=== PATIENT | female | born 1995 | race Caucasian/White ===

== ENCOUNTER 2019-06-14 18:29 | Emergency (ER) | payer MEDICAID ==
[2019-06-14] MEDS ORDERED: Sodium Chloride 0.9% 10 ML Syringe FLUSH PRN (19:03)
[2019-06-14] MEDS ORDERED: Ondansetron 4 MG/2 ML SDV IVPUSH ONE (19:03)
[2019-06-14] MEDS ORDERED: Sodium Chloride 0.9% 1,000 ML IV SCH (19:15)
[2019-06-14] MEDS ORDERED: cefTRIAXone 2 GM in Sodium Chloride 0.9% 100 ML IV ONE (20:37)
--- NOTE | 2019-06-14 20:56 | EDM.PDOC ---
ED HPI GENERAL MEDICAL PROBLEM - General Chief Complaint: Genitourinary Problem Stated Complaint: POSS KIDNEY INFECTION Time Seen by Provider: 06/14/19 18:53 Source of Information: Reports: Patient, RN Notes Reviewed - History of Present Illness INITIAL COMMENTS - FREE TEXT/NARRATIVE: 24 year old female comes in with L low back, nausea, vomiting yesterday, chills , concern fo kidney infection. She thought she just had the stomach flu but than started having L low back pain today. Hx of prior kidney infection and this feels similar. She is not diabetic. Left Flank Pain Score (Numeric/FACES): 7 - Related Data Allergies Allergy/AdvReac Type Severity Reaction Status Date / Time No Known Allergies Allergy Verified 06/14/19 18:46 Home Meds: Home Meds Levofloxacin [Levaquin] 750 mg PO DAILY #7 tablet 06/14/19 [Rx] Ondansetron [Zofran ODT] 4 mg PO Q6H PRN #7 tab.dis 06/14/19 [Rx] Past Medical History - Past Health History Medical/Surgical History: Denies Medical/Surgical History Social & Family History - Tobacco Use Smoking Status *Q: Current Every Day Smoker Years of Tobacco use: 10 Packs/Tins Daily: 0.5 ED ROS GENERAL - Review of Systems Review Of Systems: See Below Constitutional: Reports: Fever (low grade), Chills HEENT: Reports: No Symptoms Respiratory: Denies: Shortness of Breath Cardiovascular: Denies: Chest Pain GI/Abdominal: Reports: Nausea, Vomiting. Denies: Abdominal Pain, Diarrhea : Reports: Frequency Musculoskeletal: Reports: Back Pain Skin: Reports: No Symptoms Neurological: Reports: No Symptoms ED EXAM, RENAL/ - Physical Exam Exam: See Below General Appearance: Alert, No Apparent Distress Throat/Mouth: Normal Inspection, Normal Oropharynx Neck: Supple Respiratory/Chest: No Respiratory Distress, Lungs Clear, Normal Breath Sounds Cardiovascular: Regular Rate, Rhythm GI/Abdominal: Soft, Non-Tender Back Exam: CVA Tenderness (L). No: CVA Tenderness (R) Extremities: Normal Inspection, Normal Range of Motion Neurological: Alert, Oriented Skin Exam: Warm, Dry, Normal Color Course - Vital Signs Last Recorded V/S: Last Vital Signs Temp 98.7 F 06/14/19 18:44 Pulse 90 06/14/19 18:44 Resp 16 06/14/19 18:44 BP 126/73 06/14/19 18:44 Pulse Ox 98 06/14/19 18:44 - Orders/Labs/Meds Orders: Active Orders 24 hr Category Date Time Status Peripheral IV Care [RC] . DIRECTED Care 06/14/19 19:04 Active CULTURE URINE [RM] Stat Lab 06/14/19 19:10 Received Peripheral IV Insertion Adult [OM.PC] Stat Oth 06/14/19 19:03 Ordered Labs: Laboratory Tests 06/14/19 06/14/19 06/14/19 Range/Units 19:10 19:15 19:15 WBC 14.64 H (3.98-10.04) K/mm3 RBC 4.86 (3.98-5.22) M/mm3 Hgb 14.5 (11.2-15.7) gm/dl Hct 43.1 (34.1-44.9) % MCV 88.7 (79.4-94.8) fl MCH 29.8 (25.6-32.2) pg MCHC 33.6 (32.2-35.5) g/dl RDW Std Deviation 44.1 (36.4-46.3) fL Plt Count 220 (182-369) K/mm3 MPV 9.9 (9.4-12.3) fl Neut % (Auto) 78.9 H (34.0-71.1) % Lymph % (Auto) 6.7 L (19.3-51.7) % [place] % (Auto) 14.0 H (4.7-12.5) % Eos % (Auto) 0.1 L (0.7-5.8) Baso % (Auto) 0.1 (0.1-1.2) % Neut # (Auto) 11.54 H (1.56-6.13) K/mm3 Lymph # (Auto) 0.98 L (1.18-3.74) K/mm3 [place] # (Auto) 2.05 H (0.24-0.36) K/mm3 Eos # (Auto) 0.02 L (0.04-0.36) K/mm3 Baso # (Auto) 0.02 (0.01-0.08) K/mm3 Manual Slide Review Abnormal smear Sodium 134 L (136-145) mEq/L Potassium 3.3 L (3.5-5.1) mEq/L Chloride 98 (98-107) mEq/L Carbon Dioxide 24 (21-32) mEq/L Anion Gap 15.3 H (5-15) BUN 11 (7-18) mg/dL Creatinine 0.9 (0.55-1.02) mg/dL Est Cr Clr Drug Dosing 92.11 mL/min Estimated GFR (MDRD) > 60 (>60) mL/min BUN/Creatinine Ratio 12.2 L (14-18) Glucose 100 (74-106) mg/dL Calcium 9.0 (8.5-10.1) mg/dL Total Bilirubin 0.8 (0.2-1.0) mg/dL AST 31 (15-37) U/L ALT 41 (14-59) U/L Alkaline Phosphatase 72 (46-116) U/L Total Protein 7.5 (6.4-8.2) g/dl Albumin 3.8 (3.4-5.0) g/dl Globulin 3.7 gm/dL Albumin/Globulin Ratio 1.0 (1-2) Urine Color Dark yellow (Yellow) Urine Appearance Cloudy H (Clear) Urine pH 6.5 (5.0-8.0) Ur Specific [place] 1.020 (1.005-1.030) Urine Protein 2+ H (Negative) Urine Glucose (UA) Negative (Negative) Urine Ketones Negative (Negative) Urine Occult Blood 2+ H (Negative) Urine Nitrite Positive H (Negative) Urine Bilirubin Negative (Negative) Urine Urobilinogen 2.0 H (0.2-1.0) Ur Leukocyte Esterase 2+ H (Negative) Urine RBC 5-10 H (0-5) /hpf Urine WBC 75-100 H (0-5) /hpf Ur Epithelial Cells 5-10 H (0-5) /hpf Urine Bacteria Many H (FEW) /hpf Urine Mucus Few (FEW) /hpf Meds: Medications Discontinued Medications Generic Name Dose Route Start Last Admin Trade Name Freq PRN Reason Stop Dose Admin Sodium Chloride 1,000 mls @ 999 mls/hr 06/14/19 19:15 06/14/19 19:26 Normal Saline IV 999 mls/hr ONETIME LESVIA Administration Ceftriaxone Sodium 2 gm/ 100 mls @ 200 mls/hr 06/14/19 20:37 06/14/19 20:49 Sodium Chloride IV 06/14/19 21:06 200 mls/hr Q24H ONE Administration Ondansetron HCl 4 mg 06/14/19 19:03 06/14/19 19:26 Zofran IVPUSH 06/14/19 19:04 4 mg ONETIME ONE Administration Sodium Chloride 10 ml 06/14/19 19:03 06/14/19 19:28 Saline Flush FLUSH 10 ml ASDIRECTED PRN Administration Keep Vein Open - Re-Assessments/Exams Free Text/Narrative Re-Assessment/Exam: 06/14/19 20:54 UA strongly pos. for UTI, WBC also elevated. Will give rocephin 2 gram IV now and than start on PO levaquin tomorrow AM. Departure - Departure Time of Disposition: 20:54 Disposition: Home, Self-Care 01 Condition: Fair Clinical Impression: Pyelonephritis - Discharge Information Prescriptions: Levofloxacin [Levaquin] 750 mg PO DAILY #7 tablet Ondansetron [Zofran ODT] 4 mg PO Q6H PRN #7 tab.dis PRN Reason: Nausea/Vomiting Instructions: Pyelonephritis, Adult, [id number] Referrals: Shabana Sparks, [employer] [Primary Care Provider] - Forms: ED Department Discharge Additional Instructions: drink plenty of water to maintain hydration, zofran if needed for further nausea or vomiting. begin levaquin antibiotic 750 mg daily tomorrow AM and take for 1 week or until gone. Prescriptions have been sent to [facility]. Follow up clinic with Shabana in 2 to 3 days, return to ED if symptoms worsening in any way. - My Orders Last 24 Hours: My Active Orders 06/14/19 19:03 Peripheral IV Insertion Adult [OM.PC] Stat 06/14/19 19:04 Peripheral IV Care [RC] . DIRECTED 06/14/19 19:10 CULTURE URINE [RM] Stat - Assessment/Plan Last 24 Hours: My Active Orders 06/14/19 19:03 Peripheral IV Insertion Adult [OM.PC] Stat 06/14/19 19:04 Peripheral IV Care [RC] . DIRECTED 06/14/19 19:10 CULTURE URINE [RM] Stat
== END 2019-06-14 21:40 | disposition home or self-care (01) ==
LOC: JD.ED 18:29
DX: N12 Tubulo-interstitial nephritis, not specified as acute or chronic (principal); F17.210 Nicotine dependence, cigarettes, uncomplicated
CPT/HCPCS: 36415; 80053; 81001; 85025; 87086; 87088; 87184; 87186; 96365; 96375; 99284; J0696; J2405; J7030; 99283

== ENCOUNTER 2021-11-16 09:00 | Emergency (ER) | payer BC, MEDICAID ==
[2021-11-16] MEDS ORDERED: HYDROmorphone 1 MG/ML Syringe IVPUSH ONE (09:50)
[2021-11-16] MEDS ORDERED: Sodium Chloride 0.9% 10 ML Syringe FLUSH PRN (09:50)
[2021-11-16] MEDS ORDERED: Ketorolac 30 MG/ML SDV IVPUSH ONE (09:50)
[2021-11-16] MEDS ORDERED: Ondansetron 4 MG/2 ML SDV IVPUSH ONE (09:50)
[2021-11-16] MEDS ORDERED: Sodium Chloride 0.9% 1,000 ML IV ONE (09:50)
[2021-11-16] MEDS ORDERED: Levofloxacin/Dextrose 5%-Water 750 MG in Premix Bag 1 BAG IV SCH (10:00)
[2021-11-16 10:42] LABS: CORONAVIRUS COVID-19 NAA NEGATIVE (NEGATIVE)
[2021-11-16] MEDS ORDERED: Metoclopramide 10 MG/2 ML SDV IVPUSH ONE (11:20)
== END 2021-11-16 14:10 | disposition home or self-care (01) ==
LOC: JD.ED 09:00
DX: N12 Tubulo-interstitial nephritis, not specified as acute or chronic (principal); Z20.822 Contact with and (suspected) exposure to COVID-19
CPT/HCPCS: 0240U; 36415; 74176; 80053; 81003; 81025; 83605; 85007; 85027; 87040; 96365; 96375; 99284; J1170; J1885; J1956; J2405; J2765; J3490; J7030

== ENCOUNTER 2022-01-30 16:51 | Emergency (ER) | payer BC, MEDICAID ==
[2022-01-30] MEDS ORDERED: Sodium Chloride 0.9% 10 ML Syringe FLUSH PRN (17:07)
[2022-01-30] MEDS ORDERED: Acetaminophen/oxyCODONE 325-5 MG Tab PO ONE (19:02)
[2022-01-30] MEDS ORDERED: Misoprostol 200 MCG Tab PO SCH (21:00)
== END 2022-01-30 19:25 | disposition home or self-care (01) ==
LOC: JD.ED 16:51
DX: O03.4 Incomplete spontaneous abortion without complication (principal); Z3A.09 9 weeks gestation of pregnancy; Z79.899 Other long term (current) drug therapy; Z86.16 Personal history of COVID-19; Z90.49 Acquired absence of other specified parts of digestive tract; Z87.891 Personal history of nicotine dependence
CPT/HCPCS: 36415; 76817; 81001; 84702; 85025; 86900; 86901; 99284; A9270

== ENCOUNTER 2023-06-14 07:11 | Inpatient (IN) | payer MEDICAID ==
[2023-06-14] MEDS ORDERED: Nalbuphine HCl 10 MG/ 1ML Amp IVPUSH PRN (07:22)
[2023-06-14] MEDS ORDERED: Ondansetron 4 MG/2 ML SDV IVPUSH PRN ×2 (07:22→14:32)
[2023-06-14] MEDS ORDERED: Lidocaine 1% 50 ML MDV INJECT PRN (07:22)
[2023-06-14] MEDS ORDERED: Oxytocin/Lactated Ringers 30 UNIT/500 ML BAG IV SCH ×2 (07:30)
[2023-06-14] MEDS ORDERED: Lactated Ringers 1,000 ML IV SCH (07:30)
[2023-06-14 07:50] LABS: BASOPHILS PERCENT AUTO 0.2 % (0.0-1.0); EOSINOPHILS ABSOLUTE AUTO 0.1 K/mm3 (0.0-0.4); EOSINOPHILS PERCENT AUTO 0.9 % (0.0-6.0); HEMATOCRIT 34.3 % (37.0-47.0); HEMOGLOBIN 11.4 gm/dl (12.0-16.0); IMMATURE GRAN ABSOLUTE AUTO 0.04 K/mm3 (0.00-0.05); IMMATURE GRAN PERCENT AUTO 0.4 % (0.0-0.4); LYMPHOCYTES ABSOLUTE AUTO 1.5 K/mm3 (1.0-4.8); LYMPHOCYTES PERCENT AUTO 16.3 % (24.0-44.0); MEAN CORPUSCULAR HEMOGLOBIN 28.9 pg (28.0-32.0); MEAN CORPUSCULAR HGB CONC 33.2 g/dl (32.0-36.0); MEAN CORPUSCULAR VOLUME 86.8 fl (83.0-99.0); MEAN PLATELET VOLUME 9.3 fl (9.4-12.3); MONOCYTES ABSOLUTE AUTO 0.8 K/mm3 (0.0-0.8); MONOCYTES PERCENT AUTO 8.3 % (0.0-8.0); NEUTROPHILS ABSOLUTE AUTO 6.8 K/mm3 (1.8-7.7); NEUTROPHILS PERCENT AUTO 73.9 % (41.0-71.0); PLATELET COUNT,PLT 256 K/mm3 (150-400); RED BLOOD CELL COUNT 3.95 M/mm3 (4.10-5.30); WHITE BLOOD CELL COUNT,WBC 9.21 K/mm3 (3.9-11.3)
[2023-06-14] MEDS ORDERED: Metoclopramide 10 MG/2 ML SDV IVPUSH ONE (13:00)
[2023-06-14] MEDS ORDERED: Citric Acid/Sodium Citrate Solution 30 ML Cup PO ONE (13:00)
[2023-06-14] MEDS ORDERED: Bupivacaine 0.5% 30 ML SDV ONE (13:15)
[2023-06-14] MEDS ORDERED: Ketorolac 30 MG/ML SDV ONE (13:17)
[2023-06-14] MEDS ORDERED: Lactated Ringers 2,000 ML ONE (13:17)
[2023-06-14] MEDS ORDERED: ceFAZolin 2 GM Vial ONE (13:17)
[2023-06-14] MEDS ORDERED: Oxytocin 10 Units/1 ML SDV ONE (13:17)
[2023-06-14] MEDS ORDERED: Ondansetron 4 MG/2 ML SDV ONE (13:17)
[2023-06-14] MEDS ORDERED: Morphine PF 10 MG/10 ML SDV ONE (13:22)
[2023-06-14] MEDS ORDERED: ePHEDrine 50 MG/ML SDV ONE (14:11)
[2023-06-14] MEDS ORDERED: Meperidine 50 MG/ML Vial IVPUSH PRN (14:32)
[2023-06-14] MEDS ORDERED: fentaNYL 100 MCG/2 ML SDV IVPUSH PRN (14:32)
[2023-06-14] MEDS ORDERED: diphenhydrAMINE 50 MG/ML SDV IVPUSH PRN ×2 (14:32→16:48)
[2023-06-14] MEDS ORDERED: Haloperidol Lactate 5 MG/ML SDV IVPUSH ONE (15:52)
[2023-06-14] MEDS ORDERED: Promethazine 25 MG/ML SDV IM ONE (15:52)
[2023-06-14] MEDS ORDERED: Promethazine 6.25 MG in Sodium Chloride 0.9% 9 ML IV PRN (15:52)
[2023-06-14] MEDS ORDERED: Acetaminophen/oxyCODONE 325-5 MG Tab PO PRN (16:48)
[2023-06-14] MEDS ORDERED: Acetaminophen 325 MG Tab PO PRN (16:48)
[2023-06-14] MEDS ORDERED: Naloxone 0.4 MG/ML SDV IVPUSH PRN (16:48)
[2023-06-14] MEDS ORDERED: Dextrose 5%-Lactated Ringers 1,000 ML IV SCH (16:48)
[2023-06-14] MEDS ORDERED: Ibuprofen 600 MG Tab PO PRN (16:48)
[2023-06-14] MEDS ORDERED: ePHEDrine 50 MG/ML SDV IVPUSH PRN (16:48)
[2023-06-14] MEDS ORDERED: Ketorolac 30 MG/ML SDV IVPUSH SCH (19:00)
[2023-06-14] MEDS: Ketorolac 30 MG/ML SDV IVPUSH SCH (20:58)
[2023-06-15] MEDS: Ketorolac 30 MG/ML SDV IVPUSH SCH ×2 (02:31→08:30)
[2023-06-15 05:30] LABS: BASOPHILS PERCENT AUTO 0.2 % (0.0-1.0); EOSINOPHILS ABSOLUTE AUTO 0.1 K/mm3 (0.0-0.4); EOSINOPHILS PERCENT AUTO 0.4 % (0.0-6.0); HEMATOCRIT 29.7 % (37.0-47.0); IMMATURE GRAN ABSOLUTE AUTO 0.07 K/mm3 (0.00-0.05); IMMATURE GRAN PERCENT AUTO 0.4 % (0.0-0.4); LYMPHOCYTES ABSOLUTE AUTO 2.7 K/mm3 (1.0-4.8); LYMPHOCYTES PERCENT AUTO 16.7 % (24.0-44.0); MEAN CORPUSCULAR HEMOGLOBIN 29.3 pg (28.0-32.0); MEAN CORPUSCULAR HGB CONC 33.7 g/dl (32.0-36.0); MEAN CORPUSCULAR VOLUME 87.1 fl (83.0-99.0); MEAN PLATELET VOLUME 9.4 fl (9.4-12.3); MONOCYTES ABSOLUTE AUTO 1.3 K/mm3 (0.0-0.8); MONOCYTES PERCENT AUTO 7.9 % (0.0-8.0); NEUTROPHILS PERCENT AUTO 74.4 % (41.0-71.0); PLATELET COUNT,PLT 233 K/mm3 (150-400); RED BLOOD CELL COUNT 3.41 M/mm3 (4.10-5.30); WHITE BLOOD CELL COUNT,WBC 16.14 K/mm3 (3.9-11.3)
[2023-06-15] MEDS: Ibuprofen 600 MG Tab PO PRN ×2 (14:31→20:20)
[2023-06-15] MEDS: Acetaminophen/oxyCODONE 325-5 MG Tab PO PRN ×2 (14:31→20:18)
[2023-06-16] MEDS: Acetaminophen/oxyCODONE 325-5 MG Tab PO PRN ×4 (00:09→21:17)
[2023-06-16] MEDS: Ibuprofen 600 MG Tab PO PRN ×4 (02:19→20:34)
[2023-06-17] MEDS: Acetaminophen/oxyCODONE 325-5 MG Tab PO PRN (00:59)
[2023-06-17] MEDS: Ibuprofen 600 MG Tab PO PRN (04:33)
== END 2023-06-17 11:45 | disposition home or self-care (01) | DRG 788 ==
LOC: JD.OB 07:11 → OBSVTOIN 14:23
PROVIDERS: ADMIT Obstetrics & Gynecology; ATTEND Obstetrics & Gynecology
PROC: 10D00Z1 Extraction of Products of Conception, Low, Open Approach (ICD-10-PCS; principal; 2023-06-14 14:00)
DX: O13.4 Gestational [pregnancy-induced] hypertension without significant proteinuria, complicating childbirth (principal); O32.1XX0 Maternal care for breech presentation, not applicable or unspecified; Z37.0 Single live birth; Z3A.37 37 weeks gestation of pregnancy
CPT/HCPCS: 36415; 59025; 85025; 86592; 86850; 86900; 86901; A9270-GY; J0690; J1200; J1885; J2274; J2405; J2590; J2765; J3490; J7120; J7121